=== PATIENT | male | born 1970 | race Caucasian/White ===

== ENCOUNTER 2016-12-29 09:08 | Emergency (ER) | payer OTHER ==
[~2016-12-29] VITALS: Ht 177.8 cm; Wt 79.4 kg
[2016-12-29 09:19] VITALS: BP 146/96
== END 2016-12-29 09:22 ==
LOC: ER 09:11
DX: Z00.8 Encounter for other general examination (principal); F17.200 Nicotine dependence, unspecified, uncomplicated
CPT/HCPCS: 99283; A4606; Z7610